=== PATIENT | male | born 1960 | race Asian ===

== ENCOUNTER 2017-06-17 11:24 | Day surgery (SDC) | payer BC ==
[~2017-06-17] VITALS: Ht 167.6 cm; Wt 72.5 kg
[~2017-06-17 11:24] MED LIST: AMLO-218 PO; APIX5TAB PO; CEPH500C PO; METO-429 PO
[2017-06-17 12:40] VITALS: Ht 167.6 cm; Wt 72.5 kg
[2017-06-17] MEDS ORDERED: ALLO100T PO (12:47)
[2017-06-17] MEDS ORDERED: LOSA25TA5 PO (12:47)
[2017-06-17 13:05] VITALS: BP 148/82; PULSE 61; RESP 23
--- NOTE | 2017-06-17 13:56 | OPPN ---
Date/Time of Note Date/Time of Note DATE: 06/17/17 TIME: 13:55 Operative Report Preoperative Diagnosis Screening Postoperative Diagnosis 2 small colon polyps were removed using biopsy forceps Internal hemorrhoids Operation/Procedure Performed Colonoscopy and biopsy Surgeon see signature line assistant golf professional None Anesthesia: moderate sedation Estimated blood loss: none Transfusion Required none Specimen Colon polyps Grafts/Implants none Complications none ROBERT ABDI MD Jun 17, 2017 13:56
--- NOTE | 2017-06-17 13:56 | OPPN ---
Date/Time of Note Date/Time of Note DATE: 06/17/17 TIME: 13:55 Operative Report Preoperative Diagnosis Screening Postoperative Diagnosis 2 small colon polyps were removed using biopsy forceps Internal hemorrhoids Operation/Procedure Performed Colonoscopy and biopsy Surgeon see signature line medical laboratory assistant None Anesthesia: moderate sedation Estimated blood loss: none Transfusion Required none Specimen Colon polyps Grafts/Implants none Complications none ROBERT ABDI MD Jun 17, 2017 13:56
--- NOTE | 2017-06-17 13:56 | OPPN ---
Date/Time of Note Date/Time of Note DATE: 06/17/17 TIME: 13:55 Operative Report Preoperative Diagnosis Screening Postoperative Diagnosis 2 small colon polyps were removed using biopsy forceps Internal hemorrhoids Operation/Procedure Performed Colonoscopy and biopsy Surgeon see signature line health care legal assistant None Anesthesia: moderate sedation Estimated blood loss: none Transfusion Required none Specimen Colon polyps Grafts/Implants none Complications none ROBERT ABDI MD Jun 17, 2017 13:56
[2017-06-17 14:22] VITALS: BP 142/88; RESP 14
[2017-06-17] MEDS ORDERED: MIDAZOLAM 1 MG/ML 2 ML INJ ONE ×2 (14:48)
[2017-06-17] MEDS ORDERED: FENTAnyl 50 MCG/ML VIAL ONE (14:48)
--- NOTE | 2017-06-18 06:13 | GILP ---
DATE OF PROCEDURE: NAME OF PROCEDURES: Colonoscopy and biopsy. SURGEON: Robert Caballero MD. PREOPERATIVE DIAGNOSIS: Screening colonoscopy. POSTOPERATIVE DIAGNOSES: 1. Colonoscopy all the way to the cecum. 2. Two small colon polyps were removed using the biopsy forceps. 3. Internal hemorrhoids. INDICATION FOR THE PROCEDURE: Mr. Gonzalez Denney is a 56-year-old male patient who was scheduled fo r screening colonoscopy. The procedure and possible complications were well explained to the patient, he understood and conse nted to the procedure. DESCRIPTION OF PROCEDURE: Under the influence of fentanyl and Versed, the colonoscope was carefully introduced in the rectum and under direct vision, it was advanced all the way to the cecum. FINDINGS: The patient had poor prep making the exam somewhat suboptimal. The patient was noted to have 2 small colon polyps and they were removed using the biopsy forceps. He had internal hemorrhoi ds. He tolerated the procedure very well and there was no complication from the procedure. At the end o f the procedure, he was awake with stable vital signs and he was discharged home to the care of his family. IMPRESSION: 1. Colonoscopy all the way to the cecum. 2. Poor prep making the exam suboptimal. 3. Two small colon polyps were removed using the biopsy forceps. PLAN: 1. Await histopathology report. 2. Because of the poor prep and suboptimal nature of the examination, would recommend repeat colono scopy with better preparation in 2 to 3 years. Dictated By: ROBERT ROBERTS/ROSCOE Conf#: [id number] DID#: [id number]
== END 2017-06-17 14:26 | disposition home or self-care (01) ==
LOC: GIL 11:24
PROVIDERS: ATTEND Internal Medicine Gastroenterology
DX: Z12.11 Encounter for screening for malignant neoplasm of colon (principal); D12.3 Benign neoplasm of transverse colon; K64.8 Other hemorrhoids; I10 Essential (primary) hypertension
CPT/HCPCS: 45380; 88305; J2250; J3010; Z7610